=== PATIENT | female | born 1995 | race Two or more races ===

== ENCOUNTER 2017-11-15 14:16 | Emergency (ER) | payer OTHER ==
[~2017-11-15] VITALS: Ht 154.9 cm; Wt 72.6 kg
[2017-11-15] MEDS ORDERED: MUCINEX DM ER1 EAC1 PO (17:46)
[2017-11-15] MEDS ORDERED: KETO10TA2 PO (17:46)
[2017-11-15] MEDS ORDERED: PROMETH-CODEIN 65 ML PO (17:46)
[2017-11-15] MEDS ORDERED: AIRBORNE EFFER1 EACH PO (17:46)
[2017-11-15] MEDS ORDERED: OSEL75CA PO (17:46)
[2017-11-15] MEDS ORDERED: TESSALON PERLE100 M1 PO (17:46)
== END 2017-11-15 18:25 | disposition home or self-care (01) ==
LOC: ER 14:16
DX: J11.1 Influenza due to unidentified influenza virus with other respiratory manifestations (principal); J32.8 Other chronic sinusitis